=== PATIENT | female | born 1935 | race Caucasian/White ===

== ENCOUNTER 2016-08-24 17:26 | Inpatient (IN) | payer MEDICARE ==
--- NOTE | ~2016-08-24 | CO ---
Unit #: [id number] #: [id number] Patient: TISH YING [id number] [address] [address] [id number] I MR#: [id number] NAME: TISH YING. ROOM: 226 Age: 81 Sex: F Admission Date: 08/24/2016 : 1935 Attending Physician: Joe Olmstead M.D. Primary Care Physician: Mayra Richards A.P.R.N. Consultation Date: 08/25/2016 CONSULTATION REPORT REASON FOR CONSULTATION Acute pancreatitis. HISTORY The patient is a very pleasant 81-year-old white female who lives at home by herself and is fairly independent and drives and does all the activities of daily living without any help. She came with a history of upper abdominal pain along with nausea and vomiting for the last three to four days. Her nausea and vomiting have since subsided but the pain is still present, albeit to a lesser degree, while on analgesics. The patient was diagnosed as having acute pancreatitis based upon pancreatic enzyme elevations on admission. PAST MEDICAL HISTORY Significant for: 1. History of atrial fibrillation, status post cardioversion. 2. History of chronic systolic congestive heart failure with ejection fraction of 15%. 3. Idiopathic thrombocytopenic purpura. 4. Hypertension. 5. Chronic kidney disease, stage 3. 6. COPD. 7. She also has a history of colon cancer, status post partial resection. SURGERIES Previous surgeries included: 1. Partial colonic resection for colon cancer. 2. Appendectomy. 3. Cholecystectomy. 4. Hysterectomy for ovarian cancer. 5. Left total knee replacement for osteoarthrosis. MEDICATIONS Her medications at home included: 1. Eliquis. 2. Bumex. 3. Zestril. 4. Aspirin. 5. Tylenol. 6. Zofran. 7. Benadryl. 8. Multivitamins. 9. Stool softener. Unit #: [id number] #: [id number] Patient: TISH YING 10. Coreg. 11. Cordarone. 12. Pepcid AC. ALLERGIES She is allergic to ibuprofen, prednisone and sulfonamides. SOCIAL HISTORY The patient never smoke or drank alcohol in her life. She is , lives at home by herself. FAMILY HISTORY None of colon or pancreatic cancer or liver disease. REVIEW OF SYSTEMS A detailed review of organ systems does not reveal any recent weight loss. No history of fevers, chills, diagnosis left eye headaches, seizures, chest pain or syncope. No history of cough, expectoration, hemoptysis. No history of dysuria, hematuria or pyuria. No history of focal seizures or extremity weakness. PHYSICAL EXAMINATION GENERAL APPEARANCE: On examination, she is alert and oriented, appears comfortable but still has some residual epigastric pain. VITAL SIGNS: Her vital signs are stable with a temperature of 98.2, pulse is 74/minute and regular, respiratory rate 16, blood pressure 133/44. She weighs 164 pounds. She is close to her baseline weight. She has no pallor, icterus, lymphadenopathy or peripheral edema. CARDIOVASCULAR EXAMINATION: Normal heart sounds. No murmurs. LUNGS: Auscultation of the lungs reveals normal breath sounds, good air entry. ABDOMEN: Soft. Minimal tenderness in the epigastric area on deep palpation. Liver and spleen are not palpable. Bowel sounds normal. (1) also normal. DIAGNOSTIC STUDIES LABORATORY: Lab evaluation shows a leukocytosis, white count of 19,000. Hemoglobin is 13.5, platelet count is 162. BUN and creatinine 36 and 1.4. Serum sodium is 132 and potassium 3.8. LFTs are normal. The patient has mild indirect hypobilirubinemia or Gilbert syndrome. Peak amylase and lipase were 1239 and 1005 just yesterday and 680 and 445 today. The INR is 1.0. Urinalysis shows 1+ leukocyte esterase positive, 5-10 WBCs and 1+ bacteria. IMAGING: The patient had a CT scan of the abdomen and pelvis without contrast and the latter shows edematous changes primarily in the head of the pancreas. There is some extension of the inflammation in the root of the mesentery. CLINICAL IMPRESSION Patient with acute idiopathic recurrent pancreatitis. The first episode was several years ago. This is clearly non-biliary, non-alcoholic and non-hyperlipidemic pancreatitis. According to the patient, there is Unit #: [id number] #: [id number] Patient: TISH YING suggestion that she may have had pancreatic sphincterotomy in the past with or without staining in the past. MANAGEMENT PLAN For the moment, the management is conservative with analgesia and dietary restriction. As pancreatic inflammation subsides and patient returns close to baseline, she will require an outpatient repeat (2) ERCP to see if there is any structural etiology of pancreatitis, especially a pancreatic ductal stone or localized stricture which can be treated by endotherapy. The above plan was discussed with the patient and she was reassured. I also see that she is taking Bumex and there is a remote soft association between the use of Bumex and pancreatitis. However, this is somewhat conjectural. Will monitor the patient over the next couple of days and follow up. Thank you very much for asking me to see this pleasant woman. I appreciate the consult. Dictated by... Cortez Corbett/corinna TD: 08/28/2016 07:14 JOB #: [id number] CONSULTATION REPORT Page 1 of 1 X Alfredo Palmer MD X CONSULTATION REPORT
--- NOTE | ~2016-08-24 | HP ---
Unit #: [id number] #: [id number] Patient: TISH YING [id number] [address] [address] [id number] I MR#: [id number] NAME: TISH YING. ROOM: 226 Age: 81 Sex: F Admission Date: 08/24/2016 : 1935 Attending Physician: Joe Olmstead M.D. Primary Care Physician: Mayra Richards A.P.R.N. HISTORY AND PHYSICAL HISTORY OF PRESENT ILLNESS The patient is an 81-year-old white female with a history of paroxysmal atrial fibrillation, chronic anticoagulation therapy, coronary artery disease, ITP, permanent pacemaker, AICD, severe left ventricular dysfunction, chronic systolic congestive heart failure, chronic kidney disease stage 3, chronic obstructive pulmonary disease and hypertension. The patient arrived in the emergency room with three days of abdominal pain, nausea and vomiting. There she was evaluated and found to have markedly elevated amylase and lipase. CT scan was consistent with acute pancreatitis without a phlegmon or abscess formation. The patient is admitted for further evaluation. The patient states that she has had a previous cholecystectomy. She has a history of pancreatitis and maybe a sphincterotomy at some time in the past. She has no other complaints at this time. PAST MEDICAL HISTORY 1. History of paroxysmal atrial fibrillation. 2. Chronic systolic congestive heart failure with an ejection fraction of 15%. 3. Hypertension. 4. ITP. 5. History of colon cancer. 6. Uterine cancer. 7. Chronic kidney disease stage 3. 8. Probable chronic obstructive pulmonary disease. PAST SURGICAL HISTORY 1. Prior hemicolectomy on the right for colon cancer. 2. Hysterectomy for uterine cancer. 3. Appendectomy. 4. Cholecystectomy. 5. Left total knee replacement for osteoarthritis. SOCIAL HISTORY The patient is . Nonsmoker and nondrinker. No street drug use. FAMILY HISTORY Noncontributory. ALLERGIES Sulfa drugs, ibuprofen and prednisone. PREADMISSION MEDICATIONS 1. Eliquis 2.5 mg p.o. b.i.d. Unit #: [id number] #: [id number] Patient: TISH YING 2. Bumex 0.5 mg p.o. daily. 3. Zestril 2.5 mg p.o. daily. 4. Aspirin 81 mg daily. 5. Tylenol 3 one q.6 h. p.r.n. pain. 6. Zofran 4 mg q.4 h. p.r.n. nausea or vomiting. 7. Benadryl 25 mg p.o. at nighttime. 8. Multivitamins one daily. 9. Stool softener one daily. 10. Coreg 25 mg p.o. b.i.d. 11. Cordarone 200 mg daily. 12. Pepcid AC 20 mg p.o. b.i.d. PHYSICAL EXAMINATION GENERAL: She is awake, alert and oriented times three, in no acute distress. VITALS: Afebrile, pulse 69, respiratory rate 18, blood pressure 117/76. Room air O2 saturation 100%. HEENT: Unremarkable. NECK: Supple without jugular venous distension, bruits, adenopathy or thyromegaly. CHEST: Clear to auscultation. HEART: Regular rate and rhythm without any murmurs, rubs or gallops. ABDOMEN: Soft, nondistended, nontender. Positive bowel sounds. No hepatosplenomegaly. EXTREMITIES: No clubbing, cyanosis or edema. /RECTAL: Deferred. NEUROLOGIC: Grossly intact. DIAGNOSTIC STUDIES IMAGING: CT scan of the abdomen and pelvis with acute pancreatitis. LABORATORY: White blood cell count 19.0, hemoglobin 13.5, platelets 162,000, lactic acid 1.4. CMP was normal except for a sodium of 132, BUN 36, GFR 35, indirect bilirubin 1.4. Lipase 1,005, amylase 1,239. Urinalysis shows 1+ leukocytes, positive for nitrates, 5-10 WBCs, 4+ bacteria. CARDIOVASCULAR: EKG shows normal sinus rhythm. Left ventricular hypertrophy with QRS widening. Nonspecific T wave abnormality. ASSESSMENT 1. Acute pancreatitis. 2. Leukocytosis. 3. Probable urinary tract infection. 4. Severe left ventricular dysfunction with an ejection fraction of 15%. 5. Chronic systolic congestive heart failure. 6. Status post AICD permanent pacemaker. 7. Paroxysmal atrial fibrillation. 8. Chronic anticoagulation therapy. 9. History of ITP. 10. Chronic kidney disease stage 3. 11. History of colon cancer, status post right hemicolectomy. 12. History of uterine cancer, status post total abdominal hysterectomy. 13. Status post appendectomy. 14. Status post cholecystectomy. 15. Status post left total knee replacement. PLAN Unit #: [id number] #: [id number] Patient: TISH YING Urine culture, IV Levaquin, n.p.o. except for essential medications, which include Eliquis and Cordarone, IV Pepcid. GI consult. Check fasting lipid profile, mostly for triglycerides. Follow electrolytes, renal function, amylase and lipase on a daily basis. Further evaluation pending results of the above. Dictated by Cortez Cruz/royal TD: 08/25/2016 07:59 JOB #: [id number] HISTORY AND PHYSICAL Page 1 of 1 X Joe Olmstead MD HISTORY AND PHYSICAL
--- NOTE | ~2016-08-24 | DS ---
Unit #: [id number] #: [id number] Patient: TISH YING [id number] [address] [address] [id number] I MR#: [id number] NAME: TISH YING. ROOM: 226 Age: 81 Sex: F Admission Date: 08/24/2016 : 1935 Discharge Date: 08/29/2016 Attending Physician: Joe Olmstead M.D. Primary Care Physician: Mayra Richards A.P.R.N. DISCHARGE SUMMARY PRINCIPAL DISCHARGE DIAGNOSES 1. Acute recurrent pancreatitis. 2. Clostridium difficile colitis. 3. Extended-spectrum beta-lactamases Klebsiella urinary tract infection. 4. Chronic systolic chronic heart failure. 5. Status post automatic implantable cardioverter-defibrillator. 6. Paroxysmal atrial fibrillation. 7. Chronic anticoagulation therapy. 8. Idiopathic thrombocytopenic purpura. 9. Chronic kidney disease, stage 3. 10. History of colon cancer, status post right hemicolectomy. 11. History of uterine cancer, status post total abdominal hysterectomy. 12. Status post appendectomy. 13. Status post cholecystectomy. 14. Status post left total knee replacement. PROCEDURES None. CONSULTANTS Dr. Palmer from GI. REASON FOR HOSPITALIZATION The patient is an 81-year-old white female with history of PAF, chronic anticoagulation therapy; coronary artery disease; ITP; AICD; severe left ventricular dysfunction; chronic systolic CHF; chronic kidney disease, stage 3, presented to the emergency room with abdominal pain, nausea, and vomiting. Found to have a markedly elevated amylase and lipase. CT scan was consistent with acute pancreatitis without complications and the patient was admitted. The patient had a history of a previous cholecystectomy, history of pancreatitis, and sphincterotomy in the past. In any case, the patient was made n.p.o., started on IV fluids. Her white count was elevated. There was evidence of urinary tract infection. Urine culture was sent. She was started on IV Levaquin. Dr. Palmer from [facility] was consulted. Labs were followed. The patient rapidly improved. Lipid profile was sent within normal limits. White count came down. Urine culture came back greater than 10 to 5th Klebsiella, ESBL positive resistant to Levaquin. Started on Macrobid. Per culture results, developed diarrhea. Stool for C diff positive. Started on Flagyl. Labs yesterday showed a white count to be down to 10.0, hemoglobin 11.2, platelets are 120,000. CMP, amylase, and lipase yesterday were normal except for GFR of 53, lipase of 150, and an amylase of 135. The patient is tolerating a regular diet. Discharged home with the addition of Flagyl Unit #: [id number] #: [id number] Patient: TISH YING N 500 mg t.i.d. for 10 days, Macrobid one p.o. b.i.d. for 7 days, resume home medications, Cordarone 200 mg daily, Eliquis 2.5 mg b.i.d., Zofran 4 mg q.i.d. p.r.n., Benadryl 25 mg p.o. q.h.s. p.r.n. for insomnia, Coreg 25 mg 1-1/2 tabs b.i.d., stool softener on hold, Bumex 0.5 mg daily, lisinopril 2.5 mg daily, Pepcid 20 mg b.i.d., multivitamins one daily, aspirin 81 mg daily, codeine and Tylenol No. 3 one p.o. q.6 hours p.r.n. She will follow up in the office with a CBC, BMP. Repeat urinalysis. She is to follow up with Dr. Palmer and arrange for an outpatient ERCP once all the other problems have resolved. Dictated by... Joe Olmstead M.D. RACHEL/ramesh TD: 08/29/2016 07:09 JOB #: [id number] DISCHARGE SUMMARY Page 1 of 1 X Joe Olmstead MD X DISCHARGE SUMMARY
--- NOTE | ~2016-08-24 | CT4 ---
[facility] A Service of [facility] & [facility] RADIOLOGY TEXT RESULTS PATIENT: TISH YING LOCATION: C2A : 36 UNIT #: [id number] AGE: [address]: Joe Olmstead MD SEX: F ORDER DR: [id number] [facility] [address] [place], [place] [address] [id number] I MR#: [id number] Acc #: [id number] NAME: TISH YING. : 1935 SEX: F STUDY DATE/TIME: 08/24/2016 18:33 UNIT: C2A ROOM: [facility] STUDY DESCRIPTION: CT Abd and Pelv Wo Cont Attending Physician: Joe Olmstead M.D. Ordering Physician: Aydin Armstrong M.D. Primary Care Physician: Mayra Richards A.P.R.N. MEDICAL IMAGING REPORT This report is preliminary unless electronic signature is present EXAM Abdomen and pelvis CT without contrast HISTORY Generalized abdominal pain starting today. TECHNIQUE Axial images were obtained without contrast. This CT exam was performed with one or more of the following radiation dose reduction techniques: Automatic exposure control, adjustment of mA and/or kV according to patient size, and iterative reconstruction. FINDINGS The study is compared to a previous examination from 07/12/2016. The liver shows normal size. Spleen is normal in size, too. The kidneys and adrenals are unremarkable. Edematous changes are seen in the pancreas predominantly involving the head of the pancreas and peripancreatic tissues. There is no evidence of pseudocyst or phlegmon. This is associated with mildly prominent nodes in the root of the mesentery. This is new since the previous exam. Inflammatory changes extend down into the root of the mesentery, also new since the previous exam. No ascites is seen and no distended bowel loops are noted. There is no evidence of retroperitoneal adenopathy. IMPRESSION Acute pancreatitis centered at the head of the pancreas with accompanying mesenteric adenitis. This is new since the previous scan of 07/12/2016. No evidence of pseudocyst or phlegmon. No evidence of ascites. Dictated by... Elvin Mims M.D. [facility] A Service of [facility] & [facility] RADIOLOGY TEXT RESULTS PATIENT: TISH YING LOCATION: [facility] 226-01 : 36 UNIT #: [id number] AGE: [address]: Joe Olmstead MD SEX: F ORDER DR: THIS IS AN ELECTRONICALLY VERIFIED REPORT Elvin Mims M.D. at 08/25/2016 4:55 PM RLF/psc TD: 08/24/2016 21:48 JOB #: [id number] MEDICAL IMAGING REPORT Page 1 of 1 COPY
--- NOTE | ~2016-08-24 | EKG ---
PATIENT: TISH YING UNIT #: [id number] Ventricular Rate: 64 BPM Atrial Rate: 64 BPM P-R Interval: 164 ms QRS Duration: 122 ms Q-T Interval: 472 ms QTC Calculation(Bezet): 486 ms P [place]: 37 degrees Calculated R [place]: -19 degrees Calculated T [place]: -5 degrees Diagnosis Line: Normal sinus rhythm Diagnosis Line: Left ventricular hypertrophy with QRS widening Diagnosis Line: Nonspecific T wave abnormality Diagnosis Line: Abnormal ECG Diagnosis Line: When compared with ECG of 14-JUL-2016 08:19, Diagnosis Line: Sinus rhythm has replaced Electronic atrial Diagnosis Line: pacemaker Diagnosis Line: Nonspecific T wave abnormality has replaced Diagnosis Line: inverted T waves in Anterior leads Diagnosis Line: Confirmed by MEGAN DAVENPORT MD ([id number]) on 08/29/2016 Diagnosis Line: 10:25:55 PM INTERPRETING MD: ETHEL DONIS
[2016-08-24 17:03] LABS: BASOPHIL# 0.1 X10e3 (0-0.3); BASOPHIL% 0.3 % (0-2.5); DIFF IND YES; EOSINOPHIL# 0.6 X10e3 (0-0.7); EOSINOPHIL% 3.2 % (0.0-7.0); HEMATOCRIT 41.6 % (35.0-45.0); HEMOGLOBIN 13.5 gm/dL (12.0-16.0); LYMPHOCYTE# 1.9 X10e3 (1.0-3.5); MEAN CELL VOLUME 86.4 FL (83-96); MEAN CORPUSCULAR HGB CONC 32.5 g/dL (30-36); MEAN PLATELET VOLUME 8.8 FL (6.5-11.5); MONOCYTE# 1.1 X10e3 (0-1.0); MONOCYTE% 5.8 % (3.0-12.0); NEUTROPHIL# 15.3 X10e3 (1.5-7.1); NEUTROPHIL% 80.7 % (40-75); PLATELET COUNT 162 X10e3 (140-420); RED BLOOD COUNT 4.81 X10e (3.90-5.30); RED CELL DISTRIBUTION WIDTH 15.9 % (11.0-15.5)
[2016-08-24 17:19] LABS: PLATELET ESTIMATE NORMAL (NORMAL)
[2016-08-24 17:20] LABS: RBC NORMAL YES
[~2016-08-24 17:26] MED LIST: ACETAMINOPHEN PO; ALBUTEROL17 GM INH; AMIODARONE PO; ANTIVERT12.5 MG PO; ASPIRIN81 M1 PO; ASPIRIN81 M2 PO; ASPIRIN81 MG PO; BENADRYL25 M1 PO; BENADRYL25 MG PO; BUMETANIDE0.5 MG PO; BUMEX1 MG PO; CALCIUM + D 6001 TA1 PO; CARDIZEM CD PO; CARVEDILOL12.5 MG PO; CARVEDILOL25 MG PO; CATAPRES0.1 MG PO; CHEWABLE ASPIRI81 MG PO; CORDARONE200 M1 PO; COREG PO; COREG12.5 M1 PO; COREG6.25 MG PO; COZAAR25 MG PO; DEPAKOTE125 MG PO; DIAZEPAM PO; DICYCLOMINE HCL20 MG PO; DIGOX0.125 MG PO; DIGOXIN125 MCG PO; DITROPAN XL PO; DITROPAN5 MG PO; ELIQUIS2.5 MG PO; ENABLEX15 MG PO; FIBER DIET1 TA1 PO; FUROSEMIDE40 MG PO; HYDROCODON-ACE1 EAC1 PO; HYDROCODON-ACE1 EAC7 PO; HYDROCODONE-APA1 T57 PO; IMDUR-ER30 MG PO; K-DUR20 ME2 PO; K-SOL20 MEQ/15 PO; KCL PO; KLOR-CON PO; LASIX PO; LASIX20 MG PO; LEVAQUIN PO; LISINOPRIL2.5 MG PO; LISINOPRIL20 MG PO; LOMOTIL TABLET1 TAB PO; LOMOTIL WHITE2.5 MG PO; LOPRESSOR PO; MAG-OX 400400 M1 PO; MAGNESIUM400 MG PO; MAGOX 400400 MG PO; MECLIZINE HCL25 M2 PO; MONTELUKAST SOD10 MG PO; MULTI VITAMIN1 EACH PO; MULTI-DAY1 TAB PO; MULTI-VITAMIN1 EAC1 PO; MULTI-VITAMIN1 TAB PO; NASONEX17 GM; ONE DAILY1 TA1 PO; OS-CAL 500500 MG PO; OYSTER CALCIUM500 MG PO; PAROXETINE HCL40 M1 PO; PAXIL PO; PAXIL40 MG PO; PEPCID AC20 M2 PO; POTASSIUM CHLO20 ME1 PO; POTASSIUM99 M1 PO; PRINIVIL10 MG PO; PROTONIX PO; SENOKOT S1 TA1 PO; SENSIPAR60 MG PO; SINGULAIR PO; STOOL SOFTENER1 EAC1 PO; SYMBICORT 160/4.6 G1 IH; SYMBICORT INH; TYLENOL #3 PO; VENTOLIN IH; VICODIN 5/1 TAB 5/50 PO; WELLBUTRIN XL PO; WELLBUTRIN100 MG PO; ZESTRIL2.5 MG PO; ZOCOR PO; ZOCOR20 MG PO; ZOFRAN PO; [UNRECOGNIZED DRUG - REMARK]
[2016-08-24 17:42] LABS: ALBUMIN SERUM 3.7 g/dL (3.5-5.0); BILIRUBIN, DIRECT 0.3 mg/dL (0.0-0.2); BILIRUBIN,INDIRECT 1.4 mg/dL (0.0-0.9); BILIRUBIN,TOTAL 1.7 mg/dL (0.2-2.0); BUN/CREATININE RATIO 25.71; CALCIUM SERUM 8.7 mg/dL (8.4-10.2); CREATININE SERUM 1.4 mg/dL (0.6-1.4); GLOM FILT RATE Estimated 35.4 mL/min (>60); POTASSIUM 3.8 mmol/L (3.5-5.1)
[2016-08-24 18:28] LABS: URINE SOURCE CLEAN CATCH
[2016-08-24 18:37] LABS: URINE APPEARANCE CLEAR; URINE BILIRUBIN NEG (NEG); URINE BLOOD NEG (NEG); URINE COLOR YELLOW; URINE GLUCOSE NEG (NEG); URINE KETONE NEG (NEG); URINE LEUKOCYTE ESTERASE 1+ (NEG); URINE NITRATE POS (NEG); URINE PROTEIN NEG (NEG); URINE SPECIFIC GRAVITY 1.014 (1.003-1.035); URINE UROBILINOGEN 0.2 MG/DL (NEG)
[2016-08-24 18:40] LABS: CULTURE INDICATED? YES; URBCS1 AUWI 0-2 /[HPF] (0-2); URINE BACTERIA AUWI 4+ (NEGATIVE); URINE SQUAMOUS EPITHELIAL CELL NONE SEEN /[HPF]
[2016-08-25 09:12] LABS: CHOLESTEROL 120 mg/dL (0-200); HDL CHOLESTEROL 37 mg/dL (35-95); LDL CHOLESTEROL 62 mg/dL (-130); LDL/HDL RATIO 2 RATIO (0-4); TRIGLYCERIDES 106 mg/dL (10-160)
[2016-08-25 09:58] LABS: BUN/CREATININE RATIO 22.5; CALCIUM SERUM 8.3 mg/dL (8.4-10.2); CREATININE SERUM 1.2 mg/dL (0.6-1.4); GLOM FILT RATE Estimated 42.7 mL/min (>60)
[2016-08-26 05:25] LABS: HEMATOCRIT 36.8 % (35.0-45.0); HEMOGLOBIN 11.7 gm/dL (12.0-16.0); MEAN CELL VOLUME 87.8 FL (83-96); MEAN CORPUSCULAR HEMOGLOBIN 27.8 PG (28-34); MEAN CORPUSCULAR HGB CONC 31.7 g/dL (30-36); RED BLOOD COUNT 4.19 X10e (3.90-5.30); RED CELL DISTRIBUTION WIDTH 15.8 % (11.0-15.5); WHITE BLOOD COUNT 19.9 X10e3 (4.0-10.5)
[2016-08-26 06:01] LABS: ALBUMIN SERUM 2.8 g/dL (3.5-5.0); BUN/CREATININE RATIO 14.16; CALCIUM SERUM 8.3 mg/dL (8.4-10.2); CREATININE SERUM 1.2 mg/dL (0.6-1.4); GLOM FILT RATE Estimated 42.7 mL/min (>60); PROTEIN TOTAL SERUM 5.9 g/dL (6.0-8.3)
[2016-08-27 06:05] LABS: HEMATOCRIT 33.9 % (35.0-45.0); HEMOGLOBIN 10.9 gm/dL (12.0-16.0); MEAN CORPUSCULAR HEMOGLOBIN 28.4 PG (28-34); MEAN CORPUSCULAR HGB CONC 32.3 g/dL (30-36); MEAN PLATELET VOLUME 8.8 FL (6.5-11.5); RED BLOOD COUNT 3.85 X10e (3.90-5.30); RED CELL DISTRIBUTION WIDTH 15.9 % (11.0-15.5); WHITE BLOOD COUNT 14.1 X10e3 (4.0-10.5)
[2016-08-27 07:13] LABS: ALBUMIN SERUM 2.5 g/dL (3.5-5.0); BILIRUBIN,TOTAL 1.6 mg/dL (0.2-2.0); BUN/CREATININE RATIO 14.44; CALCIUM SERUM 8.6 mg/dL (8.4-10.2); CREATININE SERUM 0.9 mg/dL (0.6-1.4); GLOM FILT RATE Estimated 60.4 mL/min (>60); POTASSIUM 4.2 mmol/L (3.5-5.1); PROTEIN TOTAL SERUM 5.3 g/dL (6.0-8.3)
[2016-08-28 07:46] LABS: HEMATOCRIT 33.9 % (35.0-45.0); HEMOGLOBIN 11.2 gm/dL (12.0-16.0); MEAN CELL VOLUME 86.6 FL (83-96); MEAN CORPUSCULAR HEMOGLOBIN 28.6 PG (28-34); MEAN PLATELET VOLUME 9.2 FL (6.5-11.5); RED BLOOD COUNT 3.91 X10e (3.90-5.30)
[2016-08-28 08:24] LABS: ALBUMIN SERUM 2.8 g/dL (3.5-5.0); BILIRUBIN,TOTAL 1.2 mg/dL (0.2-2.0); CALCIUM SERUM 8.8 mg/dL (8.4-10.2); GLOM FILT RATE Estimated 53.2 mL/min (>60); POTASSIUM 3.9 mmol/L (3.5-5.1); PROTEIN TOTAL SERUM 6.2 g/dL (6.0-8.3)
[2016-08-29] MEDS ORDERED: ACETAMINOPHEN PO (07:45)
[2016-08-29] MEDS ORDERED: FLAGYL PO (07:47)
[2016-08-29] MEDS ORDERED: MACROBID 100 M100 MG PO (07:48)
== END 2016-08-29 12:01 | disposition home or self-care (01) | DRG 439 ==
LOC: CED 17:26 → CEDOF 20:18 → C2A 21:05
PROVIDERS: Emergency Medicine; Internal Medicine; Internal Medicine Gastroenterology
DX: K85.00 Idiopathic acute pancreatitis without necrosis or infection (principal); A04.7 Enterocolitis due to Clostridium difficile; D69.3 Immune thrombocytopenic purpura; I13.0 Hypertensive heart and chronic kidney disease with heart failure and stage 1 through stage 4 chronic kidney disease, or unspecified chronic kidney disease; N18.3 Chronic kidney disease, stage 3 (moderate); I50.22 Chronic systolic (congestive) heart failure; N39.0 Urinary tract infection, site not specified; K86.1 Other chronic pancreatitis; B96.1 Klebsiella pneumoniae [K. pneumoniae] as the cause of diseases classified elsewhere; Z16.12 Extended spectrum beta lactamase (ESBL) resistance; I48.0 Paroxysmal atrial fibrillation; Z79.01 Long term (current) use of anticoagulants; I25.10 Atherosclerotic heart disease of native coronary artery without angina pectoris; J44.9 Chronic obstructive pulmonary disease, unspecified; M19.90 Unspecified osteoarthritis, unspecified site; Z85.038 Personal history of other malignant neoplasm of large intestine; Z88.6 Allergy status to analgesic agent; Z88.2 Allergy status to sulfonamides; Z88.8 Allergy status to other drugs, medicaments and biological substances; Z85.42 Personal history of malignant neoplasm of other parts of uterus; Z95.810 Presence of automatic (implantable) cardiac defibrillator; Z96.652 Presence of left artificial knee joint; Z90.49 Acquired absence of other specified parts of digestive tract; Z90.710 Acquired absence of both cervix and uterus
CPT/HCPCS: 36415; 74176; 80048; 80053; 80061; 80076; 81003; 82150; 83605; 83690; 85025; 85027; 86301; 87086; 87088; 87186; 87493; 93005; 96361; 96374; 96375; 99291; J1200; J1956; J2270; J2405

== ENCOUNTER 2016-09-07 01:06 | Inpatient (IN) | payer MEDICARE ==
[2016-09-06 21:50] LABS: BASOPHIL# 0.1 X10e3 (0-0.3); BASOPHIL% 0.6 % (0-2.5); EOSINOPHIL# 0.3 X10e3 (0-0.7); EOSINOPHIL% 2.8 % (0.0-7.0); HEMATOCRIT 36.1 % (35.0-45.0); HEMOGLOBIN 11.6 gm/dL (12.0-16.0); LYMPHOCYTE# 1.6 X10e3 (1.0-3.5); LYMPHOCYTE% 12.8 % (17.0-45.0); MEAN CELL VOLUME 86.4 FL (83-96); MEAN CORPUSCULAR HEMOGLOBIN 27.9 PG (28-34); MEAN CORPUSCULAR HGB CONC 32.3 g/dL (30-36); MEAN PLATELET VOLUME 8.6 FL (6.5-11.5); MONOCYTE# 0.7 X10e3 (0-1.0); NEUTROPHIL# 9.5 X10e3 (1.5-7.1); NEUTROPHIL% 77.8 % (40-75); PLATELET COUNT 136 X10e3 (140-420); RED BLOOD COUNT 4.17 X10e (3.90-5.30); RED CELL DISTRIBUTION WIDTH 16.4 % (11.0-15.5); WHITE BLOOD COUNT 12.2 X10e3 (4.0-10.5)
[2016-09-06 21:56] LABS: DIFF IND NO
[2016-09-06 22:53] LABS: ALBUMIN SERUM 3.6 g/dL (3.5-5.0); BILIRUBIN, DIRECT 0.1 mg/dL (0.0-0.2); BILIRUBIN,INDIRECT 0.6 mg/dL (0.0-0.9); BILIRUBIN,TOTAL 0.7 mg/dL (0.2-2.0); BUN/CREATININE RATIO 13.63; CALCIUM SERUM 8.7 mg/dL (8.4-10.2); CREATININE SERUM 1.1 mg/dL (0.6-1.4); GLOM FILT RATE Estimated 47.4 mL/min (>60); POTASSIUM 3.6 mmol/L (3.5-5.1); PROTEIN TOTAL SERUM 6.8 g/dL (6.0-8.3)
--- NOTE | ~2016-09-07 | DS ---
Unit #: [id number] #: [id number] Patient: TISH YING [id number] [address] [address] [id number] I MR#: [id number] NAME: TISH YING. ROOM: 323 Age: 81 Sex: F Admission Date: 09/07/2016 : 1935 Discharge Date: 09/12/2016 Attending Physician: Joe Olmstead M.D. Referring Physician: Mayra Richards A.P.R.N. Primary Care Physician: Mayra Richards A.P.R.N. DISCHARGE SUMMARY PRINCIPAL DISCHARGE DIAGNOSES 1. Recurrent pancreatitis. 2. Pancreatic stricture, i.e. pancreatic duct stricture. 3. Status post ERCP with stent placement on 09/08/2016. 4. Chronic systolic congestive heart failure. 5. Coronary artery disease. 6. Sick sinus syndrome. 7. ITP. 8. Recent c-difficile colitis. 9. Recent urinary tract infection. 10. Chronic anticoagulation therapy. 11. History of colon cancer, status post hemicolectomy. 12. History of uterine cancer, status post total abdominal hysterectomy. 13. Chronic kidney disease stage 3. 14. Chronic obstructive pulmonary disease. 15. Status post appendectomy. 16. Status post cholecystectomy. 17. Status post left total knee replacement. PROCEDURES PERFORMED ERCP with pancreatic stent placement on 09/08/2016. CONSULTANTS Dr. Alfredo Palmer from GI services. REASON FOR HOSPITALIZATION The patient is an 81-year-old white female with a history of chronic congestive systolic heart failure, coronary artery disease, sick sinus syndrome, ITP, recent admission with pancreatitis at which time she was found to have an ESBL Klebsiella urinary tract infection and c-difficile colitis treated with Macrobid and Flagyl. She was placed on bowel rest during that admission and eventually her pancreatitis resolved. She was discharged home for plans for an outpatient ERCP when she presented back to the emergency room with abdominal pain, nausea, vomiting and markedly elevated amylase and lipase and was readmitted for recurrent pancreatitis. The patient had had a prior ERCP in the distant past with sphincterotomy for stricture. It was felt that this was likely the cause of her recurrent pancreatitis as her triglycerides were normal, she does not drink alcohol and had no other risk factors. She had a previous cholecystectomy. In any case, the patient was made n.p.o. and started on IV fluids. GI services were consulted. SCDs were used for DVT prophylaxis. She was placed on a telemetry bed because of her sick sinus syndrome. Stool for c-diff was repeated and negative during this admission. She then underwent ERCP on the , showing a stricture. Unit #: [id number] #: [id number] Patient: TISH YING Brushings were sent. Cytology showed atypical cells, but no definite malignancy. After the stent the patient rapidly improved. Her diet was advanced. Currently she is fairly asymptomatic. Her hemoglobin is 11.4, platelets are 135, white count is normal. CMP is normal except for sodium of 134, creatinine of 1.5 and GFR 32.6. Lipase is 89, amylase 81. She is tolerating a regular diet. DISPOSITION She is being discharged home. DISCHARGE MEDICATIONS 1. Coreg 25 mg 1 p.o. b.i.d. 2. Bumex 0.5 mg p.o. daily. 3. Amiodarone 200 mg p.o. daily. 4. Zestril 2.5 mg p.o. daily. 5. Pepcid 20 mg p.o. b.i.d. 6. Multivitamin 1 daily. 7. Eliquis 2.5 mg b.i.d. 8. Zofran 4 mg p.o. q.4 h. p.r.n. nausea. 9. Imodium 1 p.o. q.4 h. p.r.n. diarrhea. 10. Diphenhydramine 25 mg p.o. at nighttime p.r.n. sleep. 11. Tylenol 650 mg q.6 h. p.r.n. pain or headache. 12. Tylenol 3 one q.6 h. p.r.n. arthritic pain. 13. Aspirin 81 mg p.o. daily. FOLLOWUP 1. [facility] is to follow for occupational therapy and physical therapy. 2. She is to have an office visit with us in one week. 3. Follow up with Dr. Palmer in four to six weeks. 4. When she follows up in the office she will need to have a CBC, CMP, amylase and lipase. 5. Obviously her stent will need to probably be removed in about six weeks per Dr. Palmer. DIET She is on a healthy heart diet as tolerated. 1. 1. Dictated by... Cortez Cruz/royal TD: 09/12/2016 09:31 JOB #: [id number] DISCHARGE SUMMARY Page 1 of 1 X Joe Olmstead MD X DISCHARGE SUMMARY
--- NOTE | ~2016-09-07 | CR84 ---
[facility] A Service of [facility] & [facility] RADIOLOGY TEXT RESULTS PATIENT: TISH YING LOCATION: [facility] 323- : 36 UNIT #: [id number] AGE: [address]: Joe Olmstead MD SEX: F ORDER DR: [id number] [facility] [address] [place], [place] [address] [id number] I MR#: [id number] Acc #: [id number] NAME: TISH YING. : 1935 SEX: F STUDY DATE/TIME: 09/08/2016 10:30 UNIT: [address] ROOM: [facility] hospital STUDY DESCRIPTION: CR ERCP Biliary and Pancr SI Attending Physician: Joe Olmstead M.D. Referring Physician: Mayra Richards A.P.R.N. Ordering Physician: Alfredo Palmer M.D. Primary Care Physician: Mayra Richards A.P.R.N. MEDICAL IMAGING REPORT This report is preliminary unless electronic signature is present EXAM ERCP HISTORY Recurrent pancreatitis. FINDINGS 4 intraoperative digital radiographs were submitted from an ERCP. 2 minutes 43 seconds of fluoro time utilized. Endoscope has been passed. Contrast injected within the common bile duct. Patient appears to be post cholecystectomy. Mildly dilated common bile duct. A final image demonstrates placement of a common bile duct stent in expected position. By report, brushings were also obtained of the distal common bile duct. IMPRESSION Successful placement of a biliary stent with mild common bile duct dilatation. Patient is post cholecystectomy. Dictated by... Babita Sykes M.D. THIS IS AN ELECTRONICALLY VERIFIED REPORT Babita Sykes M.D. at 09/11/2016 7:29 AM LAQUITA/stephanie TD: 09/09/2016 07:23 JOB #: [id number] MEDICAL IMAGING REPORT Page 1 of 1 COPY
--- NOTE | ~2016-09-07 | OR ---
Unit #: [id number] #: [id number] Patient: TISH YING [id number] [address] [place], [place] [address] [id number] I MR#: [id number] NAME: TISH YING. ROOM: 323 Date of Procedure: 09/08/2016 Admission Date: 09/07/2016 Surgeon: Alfredo Palmer M.D. : 1935 Attending Physician: Joe Olmstead M.D. Referring Physician: Mayra Ricahrds A.P.R.N. Primary Care Physician: Mayra Richards A.P.R.N. OPERATIVE REPORT PREOPERATIVE DIAGNOSIS Recurrent acute pancreatitis. PROCEDURE PERFORMED 1. Endoscopic retrograde cholangiopancreatography and brushings. 2. Endoscopic retrograde cholangiopancreatography and stent placement. POSTOPERATIVE DIAGNOSES The patient had a long pancreatic duct with a stricture at the junction of head and body of pancreas with dilated pancreatic duct proximally. Brushings were obtained from this area. In addition, a 7-Mauritanian 10-cm pancreatic stent was placed. The patient had excellent biliary drainage and had previous sphincterotomy. RECOMMENDATIONS Follow the patient closely over the next couple of days for any complications and also resolution of pancreatitis. We will also follow up brushings. SEDATION USED MAC. DESCRIPTION OF PROCEDURE Following detailed explanation of the potential risks and complications of an ERCP, namely perforation, bleeding, complication related to sedation, pancreatitis, the patient was brought to GI lab and laid in left semiprone position. Sedation using MAC was given. A preliminary upper GI endoscopy was performed, which was normal. Lateral-viewing duodenoscope was advanced through the oral cavity into the esophagus and advanced into the stomach. Pylorus was intubated in the usual fashion. Scope was advanced in deep descending duodenum. Upon shortening the scope, major papilla and ampullary area was visualized en face. The position of the scope was quite tenuous except when it was in long position where it was more stable. Cannulation using guidewire was done and initially the pancreatic duct was cannulated and the patient's pancreatogram was obtained that showed irregularity and dilation of the pancreatic duct in the tail and body of the pancreas whereas in the area of the head, there was a stricture. But, it is not in the body of the pancreas. The brushings were obtained from this area and then a 7-Mauritanian 10-cm pancreatic stent was deployed. Excellent drainage was achieved. The scope and the accessories were then withdrawn. The patient returned to the recovery area. She tolerated the procedure without any postprocedure complications. Unit #: [id number] #: [id number] Patient: TISH YING Dictated by... Cortez Corbett/ramesh TD: 09/10/2016 18:38 JOB #: [id number] OPERATIVE REPORT Page 1 of 1 X Alfredo Palmer MD X PROCEDURE OPERATIVE NOTE
--- NOTE | ~2016-09-07 | CO ---
Unit #: [id number] #: [id number] Patient: TISH YING [id number] [facility] [place] [facility]. [place], [place] [address] [id number] MR#: [id number] NAME: TISH YING. ROOM: 323 Age: 81 Sex: F Admission Date: 09/07/2016 : 1935 Attending Physician: Joe Olmstead M.D. Primary Care Physician: Mayra Richards A.P.R.N. Consultation Date: 09/07/2016 CONSULTATION REPORT REASON FOR CONSULTATION Recurrent acute pancreatitis. HISTORY OF PRESENT ILLNESS Ms. Ying is a very pleasant 81-year-old white female. The patient has presented with recurrent acute pancreatitis. In fact, she was discharged from the hospital about a week to 10 days ago having been admitted at that time with acute idiopathic pancreatitis as well as C diff colitis. She was readmitted with upper abdominal pain along with nausea and vomiting. There is no history of any significant weight loss. She denies any history of fever, chills, or rigors. The pain started yesterday. The patient says that she was never pain-free when she left. She was never totally pain-free, but the pain had resolved considerably. There is no history of any fever, chills, or rigors. PAST MEDICAL HISTORY Significant for history of ITP (idiopathic thrombocytopenic purpura); chronic systolic congestive heart failure with ejection fraction of 15%; chronic kidney disease stage 3; hypertension; COPD; also atrial fibrillation, status post cardioversion; remote history of colon cancer, status post partial resection. PAST SURGICAL HISTORY Include appendectomy, cholecystectomy, hysterectomy for ovarian cancer, left total knee replacement, and partial colonic resection. MEDICATIONS At home included Eliquis, Bumex, Zestril, aspirin, Tylenol, Zofran, Benadryl, multivitamin, stool softener, Coreg, Cordarone, Pepcid AC ALLERGIES She is allergic to ibuprofen, prednisone, and sulfonamides. SOCIAL HISTORY The patient is a lifelong teetotaler. She is . Lives at home by herself. FAMILY HISTORY None of colon, pancreatic cancer, or liver disease. REVIEW OF SYSTEMS Detailed review of organ systems does not reveal any recent weight loss. No history of fever, chills, or rigors. No history of headache, seizures, chest pain, or syncope. No history of cough, expectoration, or Unit #: [id number] #: [id number] Patient: TISH YING hemoptysis. No history of dysuria, hematuria, or pyuria. No history focal seizures or extremity weakness. Rest of review of organ systems is unremarkable. PHYSICAL EXAMINATION GENERAL: She is alert and oriented, and appears comfortable. She appears to be in some pain. VITAL SIGNS: Stable with a temperature of 98.7, pulse is 90 per minute and regular, respiratory rate is 16, and blood pressure is 110/78. She weighs 164 pounds, which is close to her baseline weight. She has no pallor, icterus, lymphadenopathy, or peripheral edema. CARDIOVASCULAR: Reveal normal heart sounds. No murmurs on auscultation. LUNGS: Reveals normal breath sounds. Good air entry. ABDOMEN: Soft with mild epigastric tenderness. Liver and spleen are not palpable and bowel sounds normal. DIAGNOSTIC STUDIES LABORATORY RESULTS: Shows an amylase and lipase that are elevated 1600 to 2000. Albumin is 3.4. BUN and creatinine, electrolytes are normal. INR is 1.1. CBC shows a leukocytosis with left shift, but no bands. Her hemoglobin is preserved at 11.6 and platelet count is 136. The patient's triglycerides during last hospitalization were normal. IMAGING STUDIES: No CT scan was done at this time with the one done last time did show changes in the head of pancreas with mildly prominent lymph nodes. There is no biliary ductal dilation. CLINICAL IMPRESSION The patient with acute non-biliary, nonalcoholic, non-hyperlipidemic pancreatitis. In view of recurrent episodes, an endoscopic retrograde cholangiopancreatography will be done if indicated. This was planned as an outpatient after the resolution of previous the patient coming back and procedure will be performed as an inpatient. The above plan discussed with Ms. Ying and she was reassured. Thank you for asking me to see this pleasant woman. I appreciate the consult. Dictated by.Pato. Cortez Corbett/ramesh TD: 09/09/2016 00:07 JOB #: [id number] CONSULTATION REPORT Page 1 of 1 X Alfredo Palmer MD CONSULTATION REPORT
--- NOTE | ~2016-09-07 | HP ---
Unit #: [id number] #: [id number] Patient: TISH YING [id number] [address] [place], [place] [address] [id number] I MR#: [id number] NAME: TISH YING. ROOM: 27604 Age: 81 Sex: F Admission Date: 09/07/2016 : 1935 Attending Physician: Joe Olmstead M.D. Referring Physician: Mayra Richards A.P.R.N. Primary Care Physician: Mayra Richards A.P.R.N. HISTORY AND PHYSICAL HISTORY OF PRESENT ILLNESS This is an 81-year-old, white female with history of chronic congestive heart failure, systolic; coronary artery disease; paroxysmal atrial fibrillation; ITP; recent admission with pancreatitis, which is recurrent; as well as ESBL Klebsiella urinary tract infection and C. diff. colitis. She finished her Macrobid a few days ago for the UTI. She is still on Flagyl. She then began having recurrent abdominal pain, nausea, and vomiting on the day of admission and presented to the emergency room and found to have markedly elevated amylase and lipase and is readmitted for recurrent pancreatitis. During her last admission, it was suggested that she have an ERCP that was to be done as an outpatient as she was rapidly improving and seemed to be stable for discharge and follow up with Dr. Palmer in about one week from today, but, obviously, she is going to need to have that before discharge this time. She was here 08/24/16 through 08/29/16 with the abovementioned diagnoses. Currently, she has no other complaints on review of systems. Does not have (1) further diarrhea. Hopefully, that is resolved, but will be checked while she is here as well. ALLERGIES She has stated allergies to sulfa drugs, aspirin, cortisone, and NSAIDs. MEDICATIONS PRIOR TO ADMISSION 1. Eliquis 2.5 mg p.o. b.i.d. 2. Bumex 0.5 mg daily. 3. Zestril 2.5 mg daily. 4. Aspirin 81 mg daily. 5. Tylenol #3 one q.6 hours p.r.n. for pain. 6. Multivitamins daily. 7. Coreg 25 mg b.i.d. 8. Cordarone 200 mg daily. 9. Pepcid AC 20 mg p.o. b.i.d. 10. Zofran 4 mg q.i.d. p.r.n. 11. Benadryl 25 mg p.o. q.h.s. 12. Tylenol 650 p.o. q.6 p.r.n. 13. Flagyl 500 mg t.i.d. 14. Macrobid 100 mg b.i.d., which she has already run out of. PAST MEDICAL HISTORY History of recurrent pancreatitis, history of recent C. difficile colitis, history of recent ESBL Klebsiella urinary tract infection, chronic systolic CHF with an EF of 15%, paroxysmal atrial fibrillation, hypertension, ITP, history of colon cancer, history of uterine cancer, Unit #: [id number] #: [id number] Patient: TISH YING chronic kidney disease stage 3, and history of COPD. SURGICAL HISTORY Prior right hemicolectomy for colon cancer, hysterectomy for uterine cancer, appendectomy, cholecystectomy, and left total knee replacement for osteoarthritis. SOCIAL HISTORY She is , nonsmoker, nondrinker, and no street drug use. FAMILY HISTORY Noncontributory. PHYSICAL EXAMINATION GENERAL APPEARANCE: She is awake, alert, and oriented x3 in no acute distress. VITAL SIGNS: Afebrile, pulse 106, respirations 23, blood pressure 120/61, and O2 sats 97% on room air. HEENT: Unremarkable. NECK: Supple without JVD, bruits, adenopathy, or thyromegaly. CHEST: Clear to auscultation. HEART: Irregularly irregular without a S3 gallop or murmur appreciated. ABDOMEN: Soft and nondistended. Tender in the epigastric area without any voluntary guarding or rebound tenderness. Positive bowel sounds. No hepatosplenomegaly. EXTREMITIES: Showed no clubbing, cyanosis, or edema. GENITOURINARY: Deferred. RECTAL: Deferred. NEUROLOGIC: Grossly intact. DIAGNOSTIC STUDIES LABORATORY: White count 12.2, hemoglobin 11.6, and platelets 136,000. BMP is normal, except for GFR of 47.4. Lipase 2093 and amylase 1118. Urinalysis: Trace leukocytes, trace protein, and 0.2 urobilinogen. CARDIOVASCULAR: EKG: Atrial paced, incomplete left bundle branch block, and nonspecific ST abnormality. IMPRESSION 1. Recurrent pancreatitis. 2. ITP. 3. Paroxysmal atrial fibrillation. 4. Coronary artery disease. 5. Chronic systolic CHF with an ejection fraction of 15%. 6. Recent ESBL Klebsiella urinary tract infection, which appears to be cleared. 7. Recent C. diff. 8. Status post AICD permanent pacemaker. 9. Chronic kidney disease, stage 3. 10. COPD. 11. History of colon cancer, status post right hemicolectomy. 12. History of uterine cancer, status post total abdominal hysterectomy. 13. Status post cholecystectomy. 14. Status post appendectomy. 15. Status post left total knee replacement for osteoarthritis. PLAN NPO, pain meds p.r.n. intravenously, and Zofran IV p.r.n. Consult Dr. Unit #: [id number] #: [id number] Patient: TISH YING for ERCP. Currently, use ICDs for DVT prophylaxis. Telemetry bed. IV fluids with 1/2 normal saline to avoid sodium overload and congestive heart failure. Follow her labs on a daily basis. Stool for C. diff. will be repeated. Urinalysis was above and appears to be clear. Further evaluation pending results of the above. Patient will likely need ERCP with sphincterotomy and possible stent placement. Await Dr. Palmer's consult. Dictated by Joe Olmstead M.D. RACHEL/alexis TD: 09/07/2016 08:49 JOB #: [id number] HISTORY AND PHYSICAL Page 1 of 1 X Joe Olmstead MD HISTORY AND PHYSICAL
--- NOTE | ~2016-09-07 | EKG ---
PATIENT: TISH YING UNIT #: [id number] Ventricular Rate: 61 BPM Atrial Rate: 61 BPM P-R Interval: 146 ms QRS Duration: 118 ms Q-T Interval: 470 ms QTC Calculation(Bezet): 473 ms P [place]: 21 degrees Calculated R [place]: -11 degrees Calculated T [place]: 16 degrees Diagnosis Line: Atrial-paced rhythm Diagnosis Line: Incomplete left bundle branch block Diagnosis Line: Nonspecific ST abnormality Diagnosis Line: Abnormal ECG Diagnosis Line: No previous ECGs available Diagnosis Line: Confirmed by MEGAN DAVENPORT MD ([id number]) on 09/07/2016 Diagnosis Line: 8:07:10 PM INTERPRETING MD: ETHEL DONIS
--- NOTE | ~2016-09-07 | EKG ---
PATIENT: TISH YING UNIT #: [id number] Ventricular Rate: 106 BPM Atrial Rate: 104 BPM QRS Duration: 124 ms Q-T Interval: 406 ms QTC Calculation(Bezet): 539 ms Calculated R [place]: -2 degrees Calculated T [place]: -55 degrees Diagnosis Line: Atrial fibrillation with rapid ventricular Diagnosis Line: response Diagnosis Line: Non-specific intra-ventricular conduction delay Diagnosis Line: Nonspecific ST and T wave abnormality Diagnosis Line: Abnormal ECG Diagnosis Line: When compared with ECG of 06-SEP-2016 20:35, Diagnosis Line: (unconfirmed) Diagnosis Line: Atrial fibrillation has replaced Electronic atrial Diagnosis Line: pacemaker Diagnosis Line: Vent. rate has increased BY 45 BPM Diagnosis Line: T wave inversion more evident in Inferior leads Diagnosis Line: Nonspecific T wave abnormality now evident in Diagnosis Line: Lateral leads Diagnosis Line: QT has lengthened Diagnosis Line: Confirmed by MEGAN DAVENPORT MD ([id number]) on 09/08/2016 Diagnosis Line: 6:03:14 AM INTERPRETING MD: ETHEL DONIS
[~2016-09-07 01:06] MED LIST changes: +FLAGYL PO; +MACROBID 100 M100 MG PO
[2016-09-07 02:33] LABS: URINE APPEARANCE CLEAR; URINE BILIRUBIN NEG (NEG); URINE BLOOD NEG (NEG); URINE COLOR DK YELLOW; URINE GLUCOSE NEG (NEG); URINE KETONE TRACE (NEG); URINE LEUKOCYTE ESTERASE TRACE (NEG); URINE NITRATE NEG (NEG); URINE PH 5.5 (5-8); URINE PROTEIN TRACE (NEG); URINE SPECIFIC GRAVITY 1.018 (1.003-1.035); URINE UROBILINOGEN 0.2 MG/DL (NEG)
[2016-09-07 02:35] LABS: U HYALINE CASTS AUWI 0-2 /[LPF]; URBCS1 AUWI 0-2 /[HPF] (0-2); URINE BACTERIA AUWI NEG (NEGATIVE); URINE SQUAMOUS EPITHELIAL CELL NONE SEEN /[HPF]; UWBCS1 AUWI 0-2 (0-5)
[2016-09-07 02:36] LABS: CULTURE INDICATED? NO
[2016-09-07 04:47] LABS: BASOPHIL% 0.2 % (0-2.5); EOSINOPHIL# 0.1 X10e3 (0-0.7); EOSINOPHIL% 0.8 % (0.0-7.0); HEMATOCRIT 38.4 % (35.0-45.0); HEMOGLOBIN 12.2 gm/dL (12.0-16.0); LYMPHOCYTE# 1.3 X10e3 (1.0-3.5); MEAN CELL VOLUME 87.5 FL (83-96); MEAN CORPUSCULAR HEMOGLOBIN 27.9 PG (28-34); MEAN CORPUSCULAR HGB CONC 31.8 g/dL (30-36); MEAN PLATELET VOLUME 9.2 FL (6.5-11.5); MONOCYTE# 0.5 X10e3 (0-1.0); MONOCYTE% 4.8 % (3.0-12.0); NEUTROPHIL# 9.6 X10e3 (1.5-7.1); NEUTROPHIL% 83.2 % (40-75); PLATELET COUNT 135 X10e3 (140-420); RED BLOOD COUNT 4.38 X10e (3.90-5.30); RED CELL DISTRIBUTION WIDTH 16.2 % (11.0-15.5); WHITE BLOOD COUNT 11.5 X10e3 (4.0-10.5)
[2016-09-07 04:48] LABS: DIFF IND NO
[2016-09-07 05:33] LABS: ALBUMIN SERUM 3.4 g/dL (3.5-5.0); BILIRUBIN,TOTAL 0.8 mg/dL (0.2-2.0); BUN/CREATININE RATIO 12.72; CALCIUM SERUM 8.8 mg/dL (8.4-10.2); CREATININE SERUM 1.1 mg/dL (0.6-1.4); GLOM FILT RATE Estimated 47.4 mL/min (>60); PROTEIN TOTAL SERUM 6.5 g/dL (6.0-8.3)
[2016-09-07 09:44] LABS: INR 1.1; PARTIAL THROMBOPLASTIN TIME 25.9 SECONDS (23.5-31.3); PROTHROMBIN TIME (PATIENT) 11.3 SECONDS (9.6-11.5)
[2016-09-09 07:05] LABS: HEMATOCRIT 33.1 % (35.0-45.0); HEMOGLOBIN 10.7 gm/dL (12.0-16.0); MEAN CELL VOLUME 87.7 FL (83-96); MEAN CORPUSCULAR HEMOGLOBIN 28.4 PG (28-34); MEAN CORPUSCULAR HGB CONC 32.4 g/dL (30-36); MEAN PLATELET VOLUME 9.2 FL (6.5-11.5); RED BLOOD COUNT 3.78 X10e (3.90-5.30); RED CELL DISTRIBUTION WIDTH 16.6 % (11.0-15.5); WHITE BLOOD COUNT 9.5 X10e3 (4.0-10.5)
[2016-09-09 08:20] LABS: ALBUMIN SERUM 2.6 g/dL (3.5-5.0); BILIRUBIN,TOTAL 0.6 mg/dL (0.2-2.0); CALCIUM SERUM 8.1 mg/dL (8.4-10.2); GLOM FILT RATE Estimated 53.2 mL/min (>60); POTASSIUM 3.9 mmol/L (3.5-5.1); PROTEIN TOTAL SERUM 5.1 g/dL (6.0-8.3)
[2016-09-10 06:22] LABS: BASOPHIL% 0.7 % (0-2.5); EOSINOPHIL# 0.3 X10e3 (0-0.7); HEMATOCRIT 33.7 % (35.0-45.0); HEMOGLOBIN 10.8 gm/dL (12.0-16.0); LYMPHOCYTE# 1.2 X10e3 (1.0-3.5); LYMPHOCYTE% 17.2 % (17.0-45.0); MEAN CELL VOLUME 87.7 FL (83-96); MEAN CORPUSCULAR HEMOGLOBIN 28.2 PG (28-34); MEAN CORPUSCULAR HGB CONC 32.1 g/dL (30-36); MEAN PLATELET VOLUME 9.2 FL (6.5-11.5); MONOCYTE# 0.6 X10e3 (0-1.0); NEUTROPHIL# 5.1 X10e3 (1.5-7.1); NEUTROPHIL% 70.1 % (40-75); PLATELET COUNT 116 X10e3 (140-420); RED BLOOD COUNT 3.84 X10e (3.90-5.30); RED CELL DISTRIBUTION WIDTH 16.6 % (11.0-15.5); WHITE BLOOD COUNT 7.2 X10e3 (4.0-10.5)
[2016-09-10 06:28] LABS: DIFF IND NO
[2016-09-10 07:16] LABS: ALBUMIN SERUM 2.8 g/dL (3.5-5.0); BILIRUBIN,TOTAL 0.8 mg/dL (0.2-2.0); CALCIUM SERUM 8.8 mg/dL (8.4-10.2); CREATININE SERUM 1.1 mg/dL (0.6-1.4); GLOM FILT RATE Estimated 47.4 mL/min (>60); POTASSIUM 3.6 mmol/L (3.5-5.1); PROTEIN TOTAL SERUM 5.7 g/dL (6.0-8.3)
[2016-09-11 07:45] LABS: HEMATOCRIT 35.6 % (35.0-45.0); HEMOGLOBIN 11.4 gm/dL (12.0-16.0); MEAN CELL VOLUME 87.3 FL (83-96); MEAN CORPUSCULAR HEMOGLOBIN 27.8 PG (28-34); MEAN CORPUSCULAR HGB CONC 31.9 g/dL (30-36); MEAN PLATELET VOLUME 9.1 FL (6.5-11.5); RED BLOOD COUNT 4.08 X10e (3.90-5.30); RED CELL DISTRIBUTION WIDTH 16.3 % (11.0-15.5); WHITE BLOOD COUNT 6.8 X10e3 (4.0-10.5)
[2016-09-11 08:14] LABS: BUN/CREATININE RATIO 12.66; CALCIUM SERUM 8.9 mg/dL (8.4-10.2); CREATININE SERUM 1.5 mg/dL (0.6-1.4); GLOM FILT RATE Estimated 32.6 mL/min (>60); POTASSIUM 3.7 mmol/L (3.5-5.1); PROTEIN TOTAL SERUM 6.1 g/dL (6.0-8.3)
[2016-09-12 05:32] LABS: HEMATOCRIT 34.8 % (35.0-45.0); HEMOGLOBIN 11.4 gm/dL (12.0-16.0); MEAN CORPUSCULAR HEMOGLOBIN 28.2 PG (28-34); MEAN CORPUSCULAR HGB CONC 32.8 g/dL (30-36); RED BLOOD COUNT 4.05 X10e (3.90-5.30); RED CELL DISTRIBUTION WIDTH 16.5 % (11.0-15.5); WHITE BLOOD COUNT 6.2 X10e3 (4.0-10.5)
[2016-09-12 06:31] LABS: ALBUMIN SERUM 3.1 g/dL (3.5-5.0); BILIRUBIN,TOTAL 0.4 mg/dL (0.2-2.0); BUN/CREATININE RATIO 15.33; CALCIUM SERUM 9.1 mg/dL (8.4-10.2); CREATININE SERUM 1.5 mg/dL (0.6-1.4); GLOM FILT RATE Estimated 32.6 mL/min (>60); POTASSIUM 3.5 mmol/L (3.5-5.1); PROTEIN TOTAL SERUM 6.4 g/dL (6.0-8.3)
[2016-09-12] MEDS ORDERED: LOMOTIL WHITE2.5 M1 PO (07:54)
== END 2016-09-12 11:10 | disposition home health service (06) | DRG 439 ==
LOC: CED 01:06 → CEDOF 01:18 → C3A PCU 12:00
PROVIDERS: Emergency Medicine; Internal Medicine; Internal Medicine Gastroenterology; Nurse Practitioner Family
PROC: 0FBD8ZX Excision of Pancreatic Duct, Via Natural or Artificial Opening Endoscopic, Diagnostic (ICD-10-PCS; principal; 2016-09-08 10:37)
PROC: 0F7D8DZ Dilation of Pancreatic Duct with Intraluminal Device, Via Natural or Artificial Opening Endoscopic (ICD-10-PCS; 2016-09-08 10:37)
DX: K86.1 Other chronic pancreatitis (principal); I13.0 Hypertensive heart and chronic kidney disease with heart failure and stage 1 through stage 4 chronic kidney disease, or unspecified chronic kidney disease; D69.3 Immune thrombocytopenic purpura; I49.5 Sick sinus syndrome; I50.22 Chronic systolic (congestive) heart failure; N18.3 Chronic kidney disease, stage 3 (moderate); I25.10 Atherosclerotic heart disease of native coronary artery without angina pectoris; J44.9 Chronic obstructive pulmonary disease, unspecified; Z79.01 Long term (current) use of anticoagulants; Z79.82 Long term (current) use of aspirin; Z79.899 Other long term (current) drug therapy
CPT/HCPCS: 36415; 74330; 80048; 80053; 80076; 81003; 82150; 83690; 84478; 85025; 85027; 85610; 85730; 87177; 87209; 87493; 88104; 93005; 96360; 96361; 97110; 97116; 97162; 97167; 97530; 97535; 99285; C9113; G8978-GP; G8979-GP; G8987-GO; G8988-GO; J1610; J2270; J2405; J2543